=== PATIENT | female | born 1985 | race Caucasian/White ===

== ENCOUNTER 2016-10-23 23:20 | Emergency (ER) | payer OTHER ==
[2016-10-23 23:35] VITALS: BP 139/84; PULSE 70; TEMP 98; BMI 31.8
--- NOTE | 2016-10-23 23:41 | PDOC ---
History of Present Illness - General Chief Complaint: Urinary Problem Stated Complaint: BLOOD IN URINE Time Seen by Provider: 10/23/16 23:21 - History of Present Illness Initial Comments: 10/24/16 00:21 suprapubic pain, urinary frequency, incomplete empyting x 2 days. hematuria today lower back pain but not upper back pain no fever/ chills no n/v pmh: denies fhx: noncontrib ros: reviewed and otherwise negative Physical exam GENERAL: [The patient is awake, alert, and fully oriented, and in no apparent distress.] HEAD: [Normal with no signs of trauma.] EYES: [Pupils equal, round and reactive to light, extraocular movements intact, sclera anicteric, conjunctiva are normal.] ENT: [TMs normal, nares patent, oropharynx clear without exudates. Moist mucous membranes.] NECK: [Normal range of motion, supple without lymphadenopathy, JVD, or masses.] LUNGS: [Breath sounds equal, clear to auscultation bilaterally. No wheezes, and no crackles.] HEART: [Regular rate and rhythm, normal S1 and S2 without murmur, rub or gallop.] ABDOMEN: [Soft, + suprapubic tenderness, normoactive bowel sounds. No guarding , no rebound. No masses appreciated.] EXTREMITIES: [Normal range of motion, no edema. No clubbing or cyanosis. No cords, erythema, or tenderness.] NEUROLOGICAL: [Cranial nerves II through XII grossly intact. Normal speech, normal gait.] PSYCH: [Normal mood, normal affect.] SKIN: [Warm, Dry, normal turgor, no rashes or lesions noted.] a/p uti pyridium abx Past History - Past Medical History Allergies/Adverse Reactions: Allergies Allergy/AdvReac Type Severity Reaction Status Date / Time pork derived (porcine) Allergy Rash Verified 10/23/16 23:21 [Pork derived (porcine)] Shellfish Allergy Vomiting Verified 10/23/16 23:21 Home Medications: Ambulatory Orders Ciprofloxacin [Cipro (Restricted To Id)] 500 mg PO Q12H #5 tablet 10/23/16 Phenazopyridine HCl [Pyridium] 200 mg PO TID PRN #5 tablet 10/23/16 Anemia: No Asthma: No Cancer: No Cardiac Disorders: No CHF: No Diabetes: No GI Disorders: No Disorders: No HTN: No Psychiatric Problems: Yes (ANXIETY.) Seizures: No Thyroid Disease: No - Surgical History Abdominal Surgery: Yes (c section) - Reproductive History (#): 2 Para: 1 - Psycho/Social/Smoking Cessation Hx Anxiety: Yes Suicidal Ideation: No Smoking Status: No Smoking History: Never smoked Have you smoked in the past 12 months: No Number of Cigarettes Smoked Daily: 0 Hx Alcohol Use: No Drug/Substance Use Hx: No Substance Use Type: None Hx Substance Use Treatment: No *DC/Admit/Observation/Transfer Diagnosis at time of Disposition: Urinary tract infection Qualifiers: Urinary tract infection type: acute cystitis Hematuria presence: with hematuria Qualified Code(s): N30.01 - Acute cystitis with hematuria - Discharge Dispostion Disposition: HOME Condition at time of disposition: Stable - Prescriptions Prescriptions: Ciprofloxacin [Cipro (Restricted To Id)] 500 mg PO Q12H #5 tablet Phenazopyridine HCl [Pyridium] 200 mg PO TID PRN #5 tablet PRN Reason: bladder pain - Patient Instructions Printed Discharge Instructions: DI for Urinary Tract Infection (UTI)
[2016-10-23 23:44] LABS: PH,URINE 6.5 (4.5-8); URINE APPEARANCE Clear; URINE BILIRUBIN Negative (NEGATIVE); URINE GLUCOSE (UA) Negative (NEGATIVE); URINE KETONE Negative (NEGATIVE); URINE NITRITE Negative (NEGATIVE); URINE UROBILINOGEN 0.2 E.U/dl (0.2-1.0)
[2016-10-23 23:47] LABS: URINE BLOOD 3+ (NEGATIVE); URINE COLOR YELLOW; URINE LEUK ESTERASE 1+ (NEGATIVE); URINE PROTEIN 1+ (NEGATIVE)
[2016-10-23] MEDS ORDERED: PHENAZOPYRIDINE HCL 100 MG TABLET (FP) PO ONE (23:52)
[2016-10-23] MEDS ORDERED: CIPROFLOXACIN 500 MG TABLET (RESTRICTED TO ID) PO ONE (23:52)
[2016-10-23 23:54] LABS: URINE BACTERIA FEW /hpf (NEGATIVE); URINE RBC 20-30 /hpf (0-3)
[2016-10-23] MEDS ORDERED: CIPROFLOXACIN 250 MG TABLET (RESTRICTED TO ID) PO ONE (23:55)
[2016-10-23] MEDS ORDERED: PHENAZOPYRIDINE HCL 100 MG TABLET (FP) ONE (23:55)
[2016-10-23] MEDS ORDERED: cefTRIAXone SODIUM 1 GM VIAL ONE (23:56)
== END 2016-10-24 | disposition home or self-care (01) ==
LOC: FER 23:20
DX: N30.01 Acute cystitis with hematuria (principal); F41.9 Anxiety disorder, unspecified
CPT/HCPCS: 81003; 81015; 84703; 99281-25

== ENCOUNTER 2017-04-03 10:16 | Day surgery (SDC) | payer OTHER ==
[2017-03-31 11:01] VITALS: BMI 31.8
[2017-04-03] MEDS ORDERED: MIDAZOLAM HCL 2 MG/2 ML SINGLE DOSE VIAL ONE (11:06)
[2017-04-03] MEDS ORDERED: PROPOFOL 20 ML ONE (11:06)
[2017-04-03] MEDS ORDERED: oxyCODONE HCL 5 MG TABLET PO PRN ×2 (11:11)
[2017-04-03] MEDS ORDERED: ONDANSETRON 4 MG/2 ML VIAL IVPUSH PRN (11:11)
[2017-04-03] MEDS ORDERED: LEVOFLOXACIN 500 MG PREMIX BAG IVPB ONE (11:11)
[2017-04-03] MEDS ORDERED: LACTATED RINGERS SOLUTION 1,000 ML IV SCH (11:15)
[2017-04-03 11:59] VITALS: TEMP 97.9
[2017-04-03] MEDS ORDERED: ONDANSETRON 4 MG/2 ML VIAL ONE (12:10)
[2017-04-03] MEDS ORDERED: ONDANSETRON 4 MG/2 ML VIAL IVPUSH ONE (12:10)
[2017-04-03 14:00] VITALS: BP 124/70; PULSE 68
--- NOTE | 2017-04-03 14:43 | OP ---
Operative Note - Note: Operative Date: 04/03/17 Pre-Operative Diagnosis: right renal stone Operation: right eswl Findings: 5 mm right mid pole stone Post-Operative Diagnosis: Same as Pre-op Surgeon: Wilder Walker Anesthesia: Fractional
--- NOTE | 2017-04-04 10:24 | OP ---
DATE OF OPERATION: 04/03/2017 PREOPERATIVE DIAGNOSIS: Right renal stone. POSTOPERATIVE DIAGNOSIS: Right renal stone. PROCEDURE: Right extracorporeal shock wave lithotripsy. ATTENDING: Mikaela Flanagan MD ANESTHESIA: Fractional. DESCRIPTION OF OPERATION: The patient was brought in the operating room, placed in supine position on the operating room table. Ultrasonography and fluoroscopy were performed. A 5-mm right mid-pole stone was identified. At this point, anesthesia was administered, and preoperative antibiotics were given as well. Shock wave lithotripsy was then performed; 2500 impulses at 17 joules of power were administered to the stone. Excellent fragmentation of the stone was noted under real-time Ultrasonography and fluoroscopy. No complications were noted. The disposition of the patient was to the recovery room. MIKAELA FLANAGAN M.D. [id number]
--- NOTE | 2017-04-04 10:54 | OP ---
DATE OF OPERATION: 04/03/2017 PREOPERATIVE DIAGNOSIS: Right renal stone. POSTOPERATIVE DIAGNOSIS: Right renal stone. PROCEDURE: Right extracorporeal shock-wave lithotripsy. ATTENDING: Mikaela Flanagan MD ANESTHESIA: Fractional. DESCRIPTION OF PROCEDURE: The patient was brought in the operating room and placed in supine position on the operating room table. Ultrasonography and fluoroscopy were performed. A 5-cm right mid pole stone was identified. At this point, preoperative antibiotics and anesthesia were administered. The shock-wave lithotripsy was then performed. Then 2500 impulses at 17 J of power were administered to the stone. Excellent fragmentation was noted. No complications were noted. The stone fragmented well under real time ultrasonography and fluoroscopy. DISPOSITION: To the recovery room. MIKAELA FLANAGAN M.D. [id number]
== END 2017-04-03 14:02 | disposition home or self-care (01) ==
LOC: JASU-SURG 10:16
PROVIDERS: ATTEND Urology
PROC: 0TF3XZZ Fragmentation in Right Kidney Pelvis, External Approach (ICD-10-PCS; principal; 2017-04-03 16:15)
DX: N20.0 Calculus of kidney (principal)
CPT/HCPCS: 84703; 94760

== ENCOUNTER 2020-11-13 05:00 | Day surgery (SDC) | payer OTHER ==
[2020-11-11 10:36] VITALS: BMI 32.8
[2020-11-13] MEDS ORDERED: SUCCINYLCHOLINE CHLORIDE 200 MG/10 ML SYRINGE ONE (06:48)
[2020-11-13] MEDS ORDERED: EPHEDRINE SULFATE/0.9% NACL/PF 50 MG/10 ML SYRINGE NR ONE (06:48)
[2020-11-13] MEDS ORDERED: MIDAZOLAM HCL 2 MG/2 ML SINGLE DOSE VIAL ONE (06:49)
[2020-11-13] MEDS ORDERED: PROPOFOL 20 ML ONE ×3 (06:49)
[2020-11-13] MEDS ORDERED: KETAMINE HCL 200 MG/20 ML VIAL ONE (06:49)
[2020-11-13] MEDS ORDERED: LIDOCAINE HCL/PF 2% SDV 5ML VIAL ONE ×2 (06:53→08:14)
[2020-11-13] MEDS ORDERED: KETOROLAC TROMETHAMINE 30 MG/1 ML VIAL ONE (06:53)
[2020-11-13] MEDS ORDERED: ROCURONIUM BROMIDE 50 MG/5 ML SYRINGE ONE (08:17)
[2020-11-13] MEDS ORDERED: oxyCODONE HCL 5 MG TABLET PO PRN (08:23)
[2020-11-13] MEDS ORDERED: IBUPROFEN 600 MG TABLET (FP) PO PRN (08:23)
[2020-11-13] MEDS ORDERED: IBUPROFEN 800 MG/8 ML IJ IVPB PRN (08:23)
[2020-11-13] MEDS ORDERED: ONDANSETRON 4 MG/2 ML VIAL IVPUSH PRN (08:23)
[2020-11-13] MEDS ORDERED: ELECTROLYTE-148 SOLN 1,000 ML IV SCH (08:30)
[2020-11-13 11:15] VITALS: BP 126/70; PULSE 52; TEMP 98
== END 2020-11-13 11:15 | disposition home or self-care (01) ==
LOC: JASU-SURG 05:00
PROVIDERS: ATTEND Obstetrics & Gynecology
PROC: 0UDB7ZX Extraction of Endometrium, Via Natural or Artificial Opening, Diagnostic (ICD-10-PCS; 2020-11-13)
PROC: 0UB98ZZ Excision of Uterus, Via Natural or Artificial Opening Endoscopic (ICD-10-PCS; principal; 2020-11-13 08:03)
PROC: 0UB98ZX Excision of Uterus, Via Natural or Artificial Opening Endoscopic, Diagnostic (ICD-10-PCS; 2020-11-13 08:03)
DX: N92.1 Excessive and frequent menstruation with irregular cycle (principal); D25.0 Submucous leiomyoma of uterus; N84.0 Polyp of corpus uteri
CPT/HCPCS: 81025; 88305-TC; 94760

== ENCOUNTER 2023-04-18 08:14 | Emergency (ER) | payer OTHER ==
[2023-04-18 08:31] VITALS: BP 108/72; PULSE 71; RESP 18; TEMP 98.5; BMI 32.8
[2023-04-18 09:41] LABS: PH,URINE 6.5 (5.0-8.0); URINE APPEARANCE CLEAR; URINE BILIRUBIN NEGATIVE (NEGATIVE); URINE COLOR YELLOW; URINE GLUCOSE (UA) NEGATIVE (NEGATIVE); URINE KETONE NEGATIVE (NEGATIVE); URINE LEUK ESTERASE TRACE (NEGATIVE); URINE NITRITE NEGATIVE (NEGATIVE); URINE PROTEIN NEGATIVE (NEGATIVE); URINE UROBILINOGEN 0.2 mg/dL (0.2-1.0)
[2023-04-18 09:43] LABS: HCG,QUALITATIVE URINE Negative
[2023-04-18 09:49] LABS: EPI CELLS 7 /uL (0-25.1); HYALINE CASTS 0 /uL (0-3.1); URINE BACTERIA 309 /uL (0-1359); URINE RBC 29 /uL (0-23.9); URINE WBC 12 /uL (0-25.8)
== END 2023-04-18 10:14 | disposition home or self-care (01) ==
LOC: JER 08:14
DX: R30.0 Dysuria (principal); N30.90 Cystitis, unspecified without hematuria
CPT/HCPCS: 81003; 84703; 87086; 87186; 99283-25

== ENCOUNTER 2024-12-15 11:27 | Emergency (ER) | payer OTHER ==
[2024-12-15 11:34] VITALS: BP 117/74; PULSE 91; RESP 18; TEMP 98.6; BMI 32.5
[2024-12-15] MEDS ORDERED: IBUPROFEN 600 MG TABLET (FP) PO ONE (12:59)
[2024-12-15] MEDS: IBUPROFEN 600 MG TABLET (FP) PO ONE (13:01)
[2024-12-15] MEDS ORDERED: AMOXICILLIN 250 MG CAPSULE ONE (13:33)
[2024-12-15] MEDS: MAG HYDROX/ALH/SMC/DPHA/LIDO 240 ML MOUTHWASH MM ONE (13:38)
[2024-12-15] MEDS: AMOXICILLIN 500 MG CAPSULE (FP) PO ONE (13:38)
[2024-12-15] MEDS ORDERED: MAG HYDROX/ALH/SMC/DPHA/LIDO 240 ML MOUTHWASH MM SCH (18:00)
== END 2024-12-15 14:27 | disposition home or self-care (01) ==
LOC: JERFT 11:27
DX: J02.0 Streptococcal pharyngitis (principal); M79.10 Myalgia, unspecified site; R68.83 Chills (without fever); R09.81 Nasal congestion; H92.03 Otalgia, bilateral
CPT/HCPCS: 87637-QW; 87651; 99283-25